=== PATIENT | female | born 2000 | race Two or more races ===

== ENCOUNTER 2023-06-20 08:56 | Emergency (ER) | payer MEDICAID, OTHER ==
[~2023-06-20] VITALS: Ht 162.6 cm; Wt 53.2 kg
[2023-06-20 09:39] VITALS: BP 124/88; PULSE 75; RESP 18; TEMP 98.2; O2SAT 98
[2023-06-20] MEDS ORDERED: NAPR-746 PO (11:18)
[2023-06-20] MEDS ORDERED: METH-1181 PO (11:18)
== END 2023-06-20 11:24 | disposition home or self-care (01) ==
LOC: ER 08:56
DX: S16.1XXA Strain of muscle, fascia and tendon at neck level, initial encounter (principal); S39.012A Strain of muscle, fascia and tendon of lower back, initial encounter; V43.52XA Car driver injured in collision with other type car in traffic accident, initial encounter; Y93.89 Activity, other specified; Y92.89 Other specified places as the place of occurrence of the external cause; Y99.8 Other external cause status
CPT/HCPCS: 72040; 72100